=== PATIENT | male | born 1965 | race African-American/Black ===

== ENCOUNTER 2024-05-08 01:52 | Emergency (ER) | payer SELFPAY ==
[~2024-05-08] VITALS: Ht 182.9 cm; Wt 85.0 kg
[2024-05-08 01:55] VITALS: O2SAT 99
[2024-05-08] MEDS: MECLIZINE 12.5MG TABLET PO ONE (02:30)
[2024-05-08] MEDS: ONDANSETRON 4MG ODT PO ONE (02:30)
[2024-05-08] MEDS: MECLIZINE 12.5MG TABLET PO NR (04:15)
[2024-05-08 04:18] LABS: BASOPHILS % 0.2 % (0.0-2.0); EOSINOPHILS % 0.3 % (0.0-5.0); HEMATOCRIT. 53.5 % (42.0-52.0); LYMPHOCYTES % 16.4 % (20.0-50.0); MEAN CORPUSCULAR HEMOGLOBIN 27.8 pg (28.0-32.0); MEAN CORPUSCULAR HGB CONC 31.7 g/dL (31.0-37.0); MEAN CORPUSCULAR VOLUME 87.6 fL (80.0-94.0); MEAN PLATELET VOLUME 9.4 fl (7.4-10.4); MONOCYTES % 6.9 % (2.0-8.0); NEUTROPHILS % 76.2 % (40.0-76.0); PLATELET 221 x1000/uL (130-400); RED BLOOD CELL COUNT 6.11 mill/uL (4.7-6.1); RED CELL DISTRIBUTION WIDTH 13.2 % (11.6-14.6); WHITE BLOOD COUNT 9.7 x1000/uL (4.5-11.0)
[2024-05-08] MEDS: ONDANSETRON 4MG ODT PO NR (04:20)
[2024-05-08 04:29] LABS: DIFFERENTIAL COMMENT 1
[2024-05-08 04:31] LABS: CALCIUM 9.9 mg/dL (8.7-10.4); CARBON DIOXIDE 30 mEq/L (21-32)
[2024-05-08 04:36] LABS: CREATININE 1.3 mg/dL (0.6-1.3); GLUCOSE 101 mg/dL (70-105); UREA NITROGEN BLOOD 12 mg/dL (9-23)
[2024-05-08 04:43] LABS: CHLORIDE 105 mEq/L (98-107); POTASSIUM 4.7 mEq/L (3.5-5.1); SODIUM 140 mEq/L (136-145)
[2024-05-08] MEDS ORDERED: MECL-217 MT (05:24)
[2024-05-08 05:32] LABS: TROPONIN I HIGH SENSITIVITY < 4 ng/L (3.0-53)
[2024-05-08 05:51] VITALS: BP 111/76; PULSE 87; RESP 16; TEMP 36.61404; O2SAT 99
== END 2024-05-08 05:52 | disposition home or self-care (01) ==
LOC: ER 01:52
DX: R42 Dizziness and giddiness (principal); R26.2 Difficulty in walking, not elsewhere classified
CPT/HCPCS: 99284; 70450; 71045; 80048; 85025; 84484; 36415; J8597; Q0162